=== PATIENT | male | born 1995 | race Caucasian/White ===

== ENCOUNTER 2016-10-16 04:40 | Emergency (ER) | payer OTHER ==
[~2016-10-16] VITALS: Ht 177.8 cm; Wt 60.0 kg
[2016-10-16 04:42] VITALS: BP 144/78; PULSE 100; RESP 18; TEMP 98.1; O2SAT 100
[2016-10-16] MEDS ORDERED: SODIUM CHLOR 0.9% 1000 ML INJ 1,000 ML IV SCH (04:59)
[2016-10-16] MEDS ORDERED: ONDANSETRON HCL 4 MG/2 ML VIAL IVP ONE (05:00)
[2016-10-16] MEDS ORDERED: KETOROLAC TROMETHAMINE 30 MG/ML (IVP) VIAL IV PUSH ONE (05:00)
[2016-10-16] MEDS ORDERED: SODIUM CHLORIDE 0.9% FLUSH 10 ML FLUSH IV FLUSH PRN (05:00)
--- NOTE | 2016-10-16 05:04 | PD ---
HPI Chief Complaint: Skin Problem Time Seen by Provider: 05:00 Travel History International Travel<30 days: No Contact w/Intl Traveler<30days: No Traveled to known affect area: No History of Present Illness HPI Patient comes in for evaluation of possible sun poisoning. He states he is visiting from out of town, spent a little too much today, and getting sunburn on his bilateral lower extremities denies his abdomen 3 days ago. Patient reports that he was applying sunscreen, but was also dozing on and off. Patient states approximately 6 days ago he did have a touch of the "flu bug" the last approximately 12 hours. Patient states that tonight he began having some vomiting 8 episodes. Patient states he did take 2 Advil PM that he vomited back up almost immediately. Patient is a did have 2 beers last night. Patient denies any known fevers, abdominal pain, chest pain, shortness of breath , blood in vomit, diarrhea, or fevers. PFSH Past Medical History Medical History: Denies Significant Hx Social History Alcohol Use: Yes Tobacco Use: No Substance Use: Yes (marijuana) Allergies-Medications (Allergen,Severity, Reaction): Coded Allergies: No Known Allergies (Unverified , 10/16/16) Reported Meds & Prescriptions Reported Meds & Active Scripts Active Zofran Odt (Ondansetron Odt) 4 Mg Tab 4 Mg SL Q8HR PRN Review of Systems Except as stated in HPI: all other systems reviewed are Neg Physical Exam Narrative GENERAL: Well-developed, well nourished, in no acute distress, and non-ill appearing. SKIN: Warm and dry. Mild sunburn noted bilateral lower extremities distal to the knee and right lower quadrant of the abdomen. There is no blistering or open wounds noted. HEAD: Atraumatic. Normocephalic. EYES: Pupils equal and round. EOMI. No scleral icterus. No injection or drainage. ENT: No nasal bleeding or discharge. Mucous membranes pink and moist. NECK: Trachea midline. No JVD. Supple. No nuclear rigidity. CARDIOVASCULAR: Regular rate and rhythm. No murmur appreciated. RESPIRATORY: No accessory muscle use. No respiratory distress. Clear to auscultation. Breath sounds equal bilaterally. GASTROINTESTINAL: Abdomen soft, non-tender, nondistended. Hepatic and splenic margins not palpable. Normal bowel sounds 4. No pulsatile mass. MUSCULOSKELETAL: No obvious deformities. No clubbing. No cyanosis. No edema. Full range of motion. NEUROLOGICAL: Awake and alert. No obvious cranial nerve deficits. Motor grossly within normal limits. Normal speech. PSYCHIATRIC: Appropriate mood and affect; insight and judgment normal. Data Data Last Documented VS Vital Signs Date Time Temp Pulse Resp B/P Pulse Ox O2 Delivery O2 Flow Rate FiO2 10/16/16 04:42 98.1 100 18 144/78 100 Room Air Orders Basic Metabolic Panel (Bmp) (10/16/16 04:59) Iv Access Insert/Monitor (10/16/16 04:59) Ondansetron Inj (Zofran Inj) (10/16/16 05:00) Sodium Chlor 0.9% 1000 Ml Inj (Ns 1000 M (10/16/16 04:59) Sodium Chloride 0.9% Flush (Ns Flush) (10/16/16 05:00) Ketorolac Inj (Toradol Inj) (10/16/16 05:00) Influenzae A/B Antigen (10/16/16 05:00) Labs Laboratory Tests Test 10/16/16 05:05 Sodium Level 137 MEQ/L Potassium Level 3.8 MEQ/L Chloride Level 100 MEQ/L Carbon Dioxide Level 22.6 MEQ/L Anion Gap 14 MEQ/L Blood Urea Nitrogen 11 MG/DL Creatinine 0.95 MG/DL Estimat Glomerular Filtration 101 ML/MIN Rate Random Glucose 108 MG/DL Calcium Level 8.9 MG/DL MDM Medical Decision Making Medical Screen Exam Complete: Yes Emergency Medical Condition: Yes Differential Diagnosis Sunburn, influenza, vomiting, electrolyte abnormality, other Narrative Course Patient looks great, non-ill appearing. The patient was given IVF in the Emergency Department for rehydration. The patient responded well and is tolerating fluids and appears hydrated. I suspect viral etiology versus possible gastritis by history and exam. The abdominal exam is unremarkable without defined focal tenderness. There are normal active bowel sounds without any masses, distension, or significant tenderness. There was no evidence of an acute, surgical abdomen at this time. There was no clinical evidence to support cholecystitis/cholelithiasis, pancreatitis, perforation of gastric ulcer, colitis, diverticulitis, peritonitis, obstruction, volvulus, early appendicitis , or hernial incarceration or strangulation at this time. There was no evidence to support vascular pathology such as AAA, mesenteric ischemia. There was also no clinical evidence by history, exam or risk factors to suggest atypical presentation of cardiac disease such as ACS, AMI or atypical angina. No evidence to suggest genitourinary etiology as well. During the course of the ED visit, the patient noted improvement. Clinical picture was discussed with the patient, as well as plan of care. The patient was instructed to follow up with their physician. Abdominal pain warnings were discussed with the patient. The patient is to return if worsens, pain worsens or changes, develop fever, inability to tolerate fluids with or without vomiting, increased vomiting, blood in vomit, unable to establish follow up or as needed. The patient agrees with plan. The patient was tolerating fluids at time of discharge. Patient in no obvious distress upon re-evaluation. All pertinent laboratory result(s) discussed with patient/family. Patient was asked if they wanted to speak to my attending, which the patient did not wish to do at this time. Any questions/concerns in reference to patient diagnosis/condition discussed and clarified prior to patient's discharge. Reinforced sheer importance of close follow up with patient's primary physician or primary care clinic. Instructed patient to return to ED immediately, if symptoms return/worsen. Pt showed understanding of above instructions. Further instructions and recommendations were detailed in discharge paperwork. Pt ambulated without difficulty out of ED at discharge. Diagnosis Primary Impression: Vomiting Qualified Code: R11.10 - Non-intractable vomiting, presence of nausea not specified, unspecified vomiting type Additional Impression: Burn from the sun Patient Instructions: Acute Nausea and Vomiting (ED), General Instructions, Sunburn (ED) Additional Instructions: Follow-up with your primary care physician in 2-3 days for reevaluation. Take all medication as prescribed. Use [id number] Tylenol and/or ibuprofen as needed for pain. Follow instructions on the packaging. Use [id number] calamine lotion and/or aloe vera lotion for your sunburn. Return to the emergency department if symptoms get worse. Med/Other Pt SpecificInfo: Prescription(s) given Scripts Ondansetron Odt (Zofran Odt)4 Mg Tab4 Mg SL Q8HR PRN (Nausea/Vomiting) #12 TAB Ref 0 Prov:Vidya Munguia MD 10/16/16 Disposition: 01 DISCHARGE HOME Condition: Stable Pino Baer Oct 16, 2016 05:04 Pino Baer Oct 16, 2016 05:04
[2016-10-16 05:47] LABS: BICARBONATE 22.6 MEQ/L (21.0-32.0); POTASSIUM 3.8 MEQ/L (3.5-5.1)
[2016-10-16] MEDS ORDERED: ZOFR4TAB3 SL (06:07)
== END 2016-10-16 06:18 | disposition home or self-care (01) ==
LOC: EDBD → NEPB 04:40
DX: R11.2 Nausea with vomiting, unspecified (principal); L55.9 Sunburn, unspecified
CPT/HCPCS: 80048; 87804; 96374; 96375; 99283; J1885; J2405; J7030